=== PATIENT | female | born 1990 ===

== ENCOUNTER 2018-03-20 08:39 | Emergency (ER) | payer MEDICAID ==
[2018-03-20 08:41] VITALS: BMI 27.6
--- NOTE | 2018-03-20 09:59 | ED PDOC ---
Lower Extremity Pain/Injury Time Seen by Provider: 03/20/18 09:02 Chief Complaint (Nursing): Lower Extremity Problem/Injury History Per: Patient (accidental cut the medial aspect of left foot when she dropped a knife onto it this morning while cutting avocado. patient says it swelled up. denies loss of sensation or motorfunction, ) Past Medical History Reviewed: Historical Data, Nursing Documentation, Vital Signs Vital Signs: Last Vital Signs Temp 98.3 F 03/20/18 08:41 Pulse 98 H 03/20/18 08:41 Resp 17 03/20/18 08:41 BP 108/67 03/20/18 08:41 Pulse Ox 96 03/20/18 08:41 - Medical History PMH: No Chronic Diseases - Family History Family History: States: No Known Family Hx - Living Arrangements Living Arrangements: With Family - Social History Current smoker - smoking cessation education provided: No - Allergies Allergies/Adverse Reactions: Allergies Allergy/AdvReac Type Severity Reaction Status Date / Time No Known Allergies Allergy Verified 03/20/18 08:54 Review of Systems ROS Statement: Except As Marked, All Systems Reviewed And Found Negative Constitutional: Negative for: Fever Skin: Positive for: Other (laceration about 1.75 cm on medial aspect of the foot; partially avulsed skin edge) Physical Exam - Reviewed Nursing Documentation Reviewed: Yes Vital Signs Reviewed: Yes - Physical Exam Appears: Positive for: Well, Non-toxic, No Acute Distress Head Exam: Positive for: ATRAUMATIC, NORMAL INSPECTION, NORMOCEPHALIC Skin: Positive for: Normal Color (1.75 cm laceration - no active bleeding), Warm Eye Exam: Positive for: Normal appearance ENT: Positive for: Normal ENT Inspection Neck: Positive for: Painless ROM Respiratory: Positive for: CNT, Normal Breath Sounds Gastrointestinal/Abdominal: Positive for: Soft Extremity: Positive for: Normal ROM Neurologic/Psych: Positive for: Alert - ECG O2 Sat by Pulse Oximetry: 96 Procedures - Laceration/Wound Repair Foot Wound Length (cm): 1.75 Wound's Depth, Shape: superficial Wound Explored: clean Betadine Prep?: No Wound Repaired With: Skin adhesive Wound Complexity: Simple Sterile Dressing Applied?: Yes Disposition - Clinical Impression Clinical Impression: Laceration of foot - Patient ED Disposition Is Patient to be Admitted: No Doctor Will See Patient In The: Office Counseled Patient/Family Regarding: Diagnosis, Need For Followup - Disposition Referrals: [facility] [Outside] [facility] [[facility]] Disposition: Routine/Home Disposition Time: 10:01 Condition: STABLE
[2018-03-20 11:13] VITALS: BP 112/74; PULSE 67; RESP 16; TEMP 98.4; O2SAT 100
== END 2018-03-20 10:35 | disposition home or self-care (01) ==
LOC: H.ER 08:39
DX: S91.312A Laceration without foreign body, left foot, initial encounter (principal); W26.0XXA Contact with knife, initial encounter; Y92.89 Other specified places as the place of occurrence of the external cause